=== PATIENT | male | born 1995 ===

== ENCOUNTER 2019-01-07 17:15 | Emergency (ER) | payer OTHER ==
--- NOTE | 2019-01-07 18:00 | UC ---
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 Since that time he has noticed that he has a dry cough and feels some wheezing in his chest. Some time his cough with be productive with clear/mildly yellow phlegm in the morning. He states that he has asthma as a child, but has not had any issues since. Does not use any allergy medications or an inhaler. He denies fever, chills, sinus symptoms, sore throat, SOB, chest pain 2) About 3 years ago he had pain to his right wrist and was told that he had "early carpal tunnel". 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 Since this time his right wrist pain has worsened and he occasionally will feel numbness in his thumb, index, and middle fingers. Pain and numbness are better with rest. 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 He has not taken anything OTC for his discomfort or tried any braces. He denies specific injury. He is right handed. 3) For the last 5-6 years he has low back pain that is worse with activities. He tells me that he has had imaging on his lower back and has seen Orthopedics back home for this with no definitive answer. His pain continues as usual and notes it being more apparent with recent increase in activity. He has not taken anything OTC for his symptoms. Denies numbness, tingling, saddle anesthesia, dysuria, or loss of bowel/bladder control. - History of Current Complaint Chief Complaint: UCRespiratory Stated Complaint: URI Time Seen by Provider: 01/07/19 18:00 Hx Obtained From: Patient Onset/Duration: Gradual Onset Severity Initially: Mild Severity Currently: Mild Pain Intensity: 3 Pain Scale Used: 0-10 Numeric Character: Cough: Nonproductive - Allergies/Home Medications Allergies/Adverse Reactions: Allergies Allergy/AdvReac Type Severity Reaction Status Date / Time doxycycline Allergy Intermediate Rash And Verified 01/07/19 17:30 Itching PMH/Surg Hx/FS Hx/Imm Hx - Additional Past Medical History Additional PMH: None - Surgical History Surgical History: None - Family History Known Family History: Positive: None - Social History Occupation: Student Lives: With Family Alcohol Use: None Substance Use Type: None Smoking Status (MU): Never Smoked Tobacco Review of Systems All Other Systems Reviewed And Are Negative: Yes Constitutional: Positive: Negative Skin: Positive: Negative Eyes: Positive: Negative ENT: Positive: Negative Respiratory: Positive: Cough Cardiovascular: Positive: Negative Gastrointestinal: Positive: Negative Neurovascular: Positive: Negative Musculoskeletal: Positive: Other: - Low back pain. Right wrist pain. Neurological: Positive: Negative Psychological: Positive: Negative Physical Exam - Summary Physical Exam Summary: GENERAL: NAD. WDWN. No pain distress. SKIN: No rashes, sores, or open wounds. HEENT: Head: AT/NC Eyes: PERRLA. EOM intact. Conjunctiva clear without inflammation or discharge. Ears: Hearing grossly normal. TMs intact, no bulging, erythema, or edema. Nose: Nasal mucosa pink and moist. NTTP maxillary and frontal sinus. Throat: Posterior oropharynx without exudates, erythema, or tonsillar enlargement. Uvula midline. NECK: Supple. Nontender. No lymphadenopathy. CHEST: Mild wheezing throughout. CTAB. No accessory muscle use. Breathing comfortably and in no distress. CV: RRR. Without m/r/g. Pulses intact. Brisk cap refill. MSK: LOW BACK: NTTP over lumbar paraspinal muscles. No pain with flexion and extension of spine. NEGATIVE SLR b/l. Strength 5/5 B/L LEs including dorsiflexion and plantar flexion. FROM B/L LEs. RIGHT WRIST: NTTP. FROM. Positive Phalen and tinel sign. Supervisor Hardboard strength intact. NEURO: Alert. Sensations intact b/l L3-S1. PSYCH: Age appropriate behavior. Triage Information Reviewed: Yes Vital Signs: Initial Vital Signs Temp 99.9 F 01/07/19 17:23 Pulse 96 01/07/19 17:23 Resp 18 01/07/19 17:23 BP 146/66 01/07/19 17:23 Pulse Ox 99 01/07/19 17:23 Vital Signs Reviewed: Yes Respiratory Course/Dx - Course Course Of Treatment: CXR: No radiologist reading after 1800, therefore wet read by myself is negative for PNA or acute process. Right wrist XR: No radiologist reading after 1800, therefore wet read by myself is negative for acute process. 1) Regarding his cough - I suspect his recent environment change to [place] is causing exacerbation of previous asthma. Will start him with an albuterol inhaler and have him f/u if symptoms do not improve. 2) Regarding his right wrist pain - I suspect he may have some degree of CTS here and recommended that he try an OTC wrist brace for this, especially during his work hours. Advised to ARETHA and will refer him to Orthopedics 3) Regarding his chronic lower back pain. I am unsure the cause of this, but his lumbar spine exam is normal and he tells me that he has seen doctors in the past for this without definitive answer. He has not tried taking any tylenol or NSAIDs for this pain, therefore will try him with naproxen at this time and have him continue to f/u with his Orthopedic doctor back home when he returns in a few weeks for further management of this. - Differential Dx/Diagnosis Provider Diagnosis: Right wrist pain, Cough, Low back pain Discharge - Sign-Out/Discharge Documenting (check all that apply): Patient Departure All imaging exams completed and their final reports reviewed: No - Discharge Plan Condition: Stable Disposition: HOME Prescriptions: Naproxen [Naproxen 500 mg tab] 500 mg PO BID PRN #30 tablet PRN Reason: Pain Patient Education Materials: Asthma (ED) Referrals: No Primary Care Phys,NOPCP [Primary Care Provider] - Anil Amin MD [Medical Doctor] - As Soon As Possible Additional Instructions: If you develop a fever, shortness of breath, chest pain, new or worsening symptoms - please call your PCP or go to the ED immediately. 1) Regarding your cough; your chest X-Ray was normal today. I suspect you are experiencing an exacerbation of Asthma given the recent [place] climate and environment change. I recommend that you use the inhaler 1 puff every 6 hours as needed for your cough or wheezing 2) Regarding your chronic low back pain - I am unsure the cause of this today, but recommend that you try taking tylenol or naproxen for your discomfort when you are active and following up with your primary doctor or Orthopedic doctor when you return home 3) Regarding your wrist pain - I suspect you may be suffering from carpal tunnel syndrome due to overuse of the hand. The X-Ray of your wrist was normal today. As discussed, I recommend that you try and over the counter wrist brace during your work hours to reduce pain in your wrist and hand. I have also referred you to an Orthopedic doctor (below) for further evaluation if you wish to seen during your time at [facility]. May take naproxen as prescribed for discomfort. - Billing Disposition and Condition Condition: STABLE Disposition: Home
[2019-01-07] MEDS ORDERED: Albuterol HFA INHALER* 8 gm MDI INH ONE (18:25)
--- NOTE | 2019-01-08 20:13 | UC ---
- Progress Note Progress Note: Final x-ray reports reviewed. CXR IMPRESSION: NO EVIDENCE FOR ACTIVE CARDIOPULMONARY DISEASE. RIGHT WRIST IMPRESSION: NO EVIDENCE FOR FRACTURE. Consistent with provider reading. No change in POC. Course/Dx - Diagnoses Provider Diagnoses: Right wrist pain, Cough, Low back pain Discharge - Sign-Out/Discharge Documenting (check all that apply): Post-Discharge Follow Up All imaging exams completed and their final reports reviewed: Yes - Discharge Plan Condition: Stable Disposition: HOME Prescriptions: Naproxen [Naproxen 500 mg tab] 500 mg PO BID PRN #30 tablet PRN Reason: Pain Patient Education Materials: Asthma (ED) Referrals: Anil Amin MD [Medical Doctor] - As Soon As Possible No Primary Care Phys,NOPCP [Primary Care Provider] - Additional Instructions: If you develop a fever, shortness of breath, chest pain, new or worsening symptoms - please call your PCP or go to the ED immediately. 1) Regarding your cough; your chest X-Ray was normal today. I suspect you are experiencing an exacerbation of Asthma given the recent [place] climate and environment change. I recommend that you use the inhaler 1 puff every 6 hours as needed for your cough or wheezing 2) Regarding your chronic low back pain - I am unsure the cause of this today, but recommend that you try taking tylenol or naproxen for your discomfort when you are active and following up with your primary doctor or Orthopedic doctor when you return home 3) Regarding your wrist pain - I suspect you may be suffering from carpal tunnel syndrome due to overuse of the hand. The X-Ray of your wrist was normal today. As discussed, I recommend that you try and over the counter wrist brace during your work hours to reduce pain in your wrist and hand. I have also referred you to an Orthopedic doctor (below) for further evaluation if you wish to seen during your time at [place]. May take naproxen as prescribed for discomfort. - Billing Disposition and Condition Condition: STABLE Disposition: Home
== END 2019-01-07 18:40 | disposition home or self-care (01) ==
LOC: EDBD 17:15 → UCEAST 17:15
DX: R05 Cough (principal); M25.531 Pain in right wrist; M54.5 Low back pain
CPT/HCPCS: 71046; 99202; A9270-GY; G0463